=== PATIENT | male | born 2000 ===

== ENCOUNTER 2025-02-25 16:03 | Emergency (ER) | payer SELFPAY ==
[2025-02-25 16:18] VITALS: BP 147/57; PULSE 60; RESP 16; TEMP 36.4; O2SAT 100
--- NOTE | 2025-02-25 16:20 | ED_ITS ---
HPI - Male Genitourinary General Chief complaint: Urogenital-Male Stated complaint: STD Time Seen by Provider: 02/25/25 16:20 Focused HPI: This is a 24 year old male that presents to the ER for STD check. No current symptoms. Reports recent unprotected sex and that he wants to be safe. GENERAL: Well-appearing, well-nourished, and in no acute distress. HEAD: Normocephalic, atraumatic. CHEST: No respiratory distress. HEART: Regular rate NEURO: ?Alert and oriented x3. Patient screened in triage and initial orders placed.? ?Additional care and disposition to be based upon?diagnostic testing and treatment. Course Vital Signs Vital signs: Vital Signs Temperature 97.6 F 02/25/25 16:18 Pulse Rate 60 02/25/25 16:18 Respiratory Rate 16 02/25/25 16:18 Blood Pressure 147/57 H 02/25/25 16:18 Pulse Oximetry 100 02/25/25 16:18 Temperature 97.6 F 02/25/25 16:18 Pulse Rate 60 02/25/25 16:18 Respiratory Rate 16 02/25/25 16:18 Blood Pressure 147/57 H 02/25/25 16:18 Pulse Oximetry 100 02/25/25 16:18 MDM - Male Genitourinary MDM Narrative Medical decision making narrative: Patient left after medical screening exam and initial workup, and before any further evaluation or management Lab Data Labs: Lab Results 02/25/25 Range/Units 16:41 Urine Color Yellow (Yellow) Urine Appearance Clear (Clear) Urine pH 7.0 (5.0-9.0) Ur Specific [place] 1.022 (1.001-1.035) Urine Protein 2+ H (Negative) mg/dL Urine Glucose (UA) Negative (Negative) mg/dL Urine Ketones Negative (Negative) mg/dL Ur Blood (Man) Negative (Negative) Urine Nitrate Negative (Negative) Urine Bilirubin Negative (Negative) Urine Urobilinogen 0.2 (<2.0) mg/dL Leukocyte Esterase Rfl Negative (Negative) TAMEKA/UL Urine RBC 0-2 (0-2) /hpf Urine WBC 0-5 (0-3) /hpf Ur Squamous Epith Cells None seen (Few) /hpf Urine Bacteria None seen /hpf Urine Casts 0-2 C. trachomatis (PCR) Not detected (NOT DETECTE) N. gonorrhoeae (PCR) Not detected (NOT DETECTE) T. vaginalis (PCR) Not detected (NOT DETECTE) Discharge Plan Discharge Clinical Impression: Concern about STD in male without diagnosis Patient Disposition: Elopement After Seen by Prov Patient Language: [place] Follow-up/Referrals: PHYSICIAN,LEATHER GOODS MAKER [Primary Care Provider, Internal Medicine]
[2025-02-25 16:55] LABS: Add Urine Microscopic? YES; Appearance Urine Clear (Clear); Glucose Urine UA Negative (Negative); Leukocyte Esterase Ur Negative LEU/UL (Negative); Nitrate Urine Negative (Negative); Non Pathogenic Casts 0-2; Specific Grav Ur 1.022 (1.001-1.035)
[2025-02-25 17:59] LABS: Trichomonas Vag PCR NOT DETECTED (NOT DETECTE)
== END 2025-02-25 18:00 | disposition left against medical advice (07) ==
LOC: ANHED 18:36
PROVIDERS: Emergency Provider Physician Assistant
DX: Z11.3 Encounter for screening for infections with a predominantly sexual mode of transmission (principal)
CPT/HCPCS: 81001; 87491; 87591; 87661; 99283